=== PATIENT | male | born 1975 | race Caucasian/White ===

== ENCOUNTER → 2022-10-02 | Outpatient (CLI) | payer BC ==
[~2022-10-02] MED LIST: ASP325T PO; CIPR500T78 PO; DILT300C PO; DOXA2TAB2 PO; HYDR-3720 PO; LINA5TAB PO; LSNP20T PO; METF-380 PO; METO100T2 PO; ONDA8TAB9 PO; PRD20T PO; SIMV10TA3 PO; SULF1TAB38 PO; TELM80TA3 PO
== END ==
LOC: CARD 07:44
PROVIDERS: ATTEND Nurse Practitioner Family
DX: R00.2 Palpitations (principal)
CPT/HCPCS: 93225; 93226

== ENCOUNTER 2022-10-14 08:05 | Day surgery (SDC) | payer BC ==
[2022-10-14] VITALS (9 sets, daily range): BP systolic 159–215; BP diastolic 85–111
[~2022-10-14] VITALS: Ht 180.3 cm; Wt 116.9 kg
[2022-10-14] MEDS ORDERED: LIDOCAINE 1% INJ 20 ML VIAL ONE (08:15)
[2022-10-14] MEDS ORDERED: NS IV 1000 ML 1,000 ML IV SCH ×2 (08:15→12:15)
[2022-10-14] MEDS ORDERED: HEParin (CATH LAB) 2,000 ML IV ONE (08:16)
[2022-10-14] MEDS ORDERED: NS IV 1000 ML 1,000 ML ONE (08:16)
[2022-10-14 08:37] LABS: HEMATOCRIT 52 % (40-54); HEMOGLOBIN 17.9 g/dL (13.3-17.7); MEAN CORPUSCULAR HEMOGLOBIN 30 pg (25-34); MEAN CORPUSCULAR HGB CONC 35 g/dL (32-36); MEAN CORPUSCULAR VOLUME 86 fL (80-99); MEAN PLATELET VOLUME 9.8 fL (9.0-12.2); PLATELET COUNT 225 10^3/uL (130-400); WHITE BLOOD COUNT 8.7 10^3/uL (4.3-11.0)
[2022-10-14] MEDS ORDERED: METO200T48 PO (08:44)
[2022-10-14] MEDS ORDERED: LISI20TA26 PO (08:44)
[2022-10-14] MEDS ORDERED: SITA1TBM4 PO (08:44)
[2022-10-14] MEDS ORDERED: DAPA10TA PO (08:44)
[2022-10-14] MEDS ORDERED: APIX5TAB PO (08:44)
[2022-10-14] MEDS ORDERED: LISI1TAB46 PO (08:44)
[2022-10-14 08:49] LABS: PROTHROMBIN TIME PATIENT 13.2 SEC (12.2-14.7)
[2022-10-14 08:59] LABS: ALBUMIN 4.2 GM/DL (3.2-4.5); BILIRUBIN,TOTAL 1.3 MG/DL (0.1-1.0); CALCIUM 8.9 MG/DL (8.5-10.1); CREATININE SERUM 0.88 MG/DL (0.60-1.30); POTASSIUM 3.2 MMOL/L (3.6-5.0); TOTAL PROTEIN 7.6 GM/DL (6.4-8.2)
[2022-10-14] MEDS ORDERED: MIDAZOLAM 5 MG/5 ML (VERSED) VIAL ONE (10:58)
[2022-10-14] MEDS ORDERED: fentaNYL INJ 100 MCG/2 ML AMP ONE (10:58)
[2022-10-14] MEDS ORDERED: HEParin 1000 UNIT/ML (10ML VIAL) FOR BOLUS ONE (10:58)
[2022-10-14] MEDS ORDERED: VERAPAMIL 5 MG/2 ML (CALAN) VIAL IV ONE (10:58)
[2022-10-14] MEDS ORDERED: NITRO DRIP 25000 MCG/D5W 250 ML IV ONE (10:59)
--- NOTE | 2022-10-14 12:11 | Cardiac Procedure Note-CS/ASA ---
Pre-Procedure Note Pre-Op Procedure Note Date of Available H&P: Sep 19, 2022 Date H&P Reviewed: October 14, 2022 Time H&P Reviewed: 10:00 History & Physical: H&P Reviewed Changes from last HP Wide-complex tachy seen on Holter of 10-02-22 Moderate Sedation PreProcedure ASA Score 3 Airway Lungs Heart ASA score ASA 1: a normal healthy patient ASA 2: a patient with a mild systemic disease (mid diabetes, controlled hyp ertension, obesity ASA 3: a patient with a severe systemic disease that limits activity (angina, COPD, prior Myocardial infarction) ASA 4: a patient with an incapacitating disease that is a constant threat to life (CHF, renal failure) ASA 5: a moribund patient not expected to survive 24 hrs. (ruptured aneurysm) ASA 6: a declared brain- patient whose organs are being harvested. For emergent operations, add the letter E after the classification Mallampati Classification Grade 2 Sedation Plan Analgesia, Amnesia, Plan communicated to team members The patient is an appropriate candidate to undergo the planned procedure, sedation, and anesthesia. The patient immediately re-assessed prior to indication. FRANK GONZALES MD FACP [facility] October 14, 2022 12:11
[2022-10-14] MEDS ORDERED: PATIENT MAY USE OWN MEDS, ALL PO SCH (12:15)
[2022-10-14] MEDS ORDERED: KCL 20 MEQ TAB (K-DUR) PO ONE (12:15)
[2022-10-14] MEDS ORDERED: POTA-177 PO (12:16)
--- NOTE | 2022-10-14 12:17 | Discharge Inst-Cardiology ---
Discharge Inst-Cardiac Discharge Medications New Medications: Potassium Chloride (Potassium Chloride) 10 Meq Tab.er.prt 10 MEQ PO DAILY, #30 TAB 5 Refills Continued Medications: Apixaban (Eliquis) 5 Mg Tablet 5 MG PO BID, TAB Dapagliflozin Propanediol (Farxiga) 10 Mg Tablet 10 MG PO DAILY, TAB Lisinopril (Lisinopril) 20 Mg Tablet 20 MG PO DAILY, TAB Lisinopril/Hydrochlorothiazide (Lisinopril-Hctz 20-12.5 mg Tab) 20 Mg-12.5 Mg Tablet 1 EACH PO DAILY, TAB Metoprolol Succinate (Metoprolol Succinate) 200 Mg Tab.er.24h 200 MG PO DAILY, TAB Discontinued Medications: Sitagliptin Phos/Metformin HCl (Janumet Xr 50-1,000 mg Tablet) 50 Mg-1,000 Mg Tbmp.24hr 1 EACH PO BID, EA Patient Instructions Patient Instructions: Hold METFORMIN until the morning of 10/17/22. Then resume previous home dose FRANK GONZALES MD FACP [facility] October 14, 2022 12:17
--- NOTE | 2022-10-14 12:18 | Discharge Inst-Post CATH ---
Discharge Inst-CATH/EP Post Cardiac Cath/EP D/C Inst Follow Up/Plan F/u with Dr Ngo in 1-2 weeks ACTIVITY * Go Home directly and rest. * Limit activity of the leg (or wrist if it was used) for 7 days including aerobics, swimming, jogging, bicycling, etc. * Restrict stair-climbing for 7 days if possible, if not, climb up with your non-cath leg, then bring together on the same step. * Avoid lifting, pushing, pulling or excessive movement of the affected e xtremity for 7 days. * Customary sexual activity may be resumed after 2 days-use caution not to use a position that strains or causes pain to the affected extremity. * No driving for 24 hours. * NO SMOKING. * Avoid straining for bowel movements for 7 days. * Gentle walking on level ground is allowed. * Returning to work will depend on the type of procedure and the results. Your doctor will discuss this with you. CALL YOUR DOCTOR FOR ANY OF THE FOLLOWING: *If bleeding from the puncture site occurs- Apply gentle pressure to site with clean cloth and call your doctor or EMS. * If a knot or lump forms under the skin, increases in size, or causes pain. * If bruising appears to be worsening or moving further down your leg instead of disappearing. * Temperature above 101 F. CARE OF YOUR GROIN INCISION; * Bruising or purple discoloration of the skin near the puncture site is common. * You may shower only, no bathtub bathing for 5 days. Be careful to avoid slipping as your leg may feel stiff. * If a closure device was used on your femoral artery, please see the attached guide regarding care of the device and your leg. * Leave dressing on FOR 24 hours. CARE OF YOUR WRIST INCISION; * Bruising or purple discoloration of the skin near the puncture site is common. * You may shower. * DO NOT submerge wrist. * Leave dressing on FOR 24 hours. FRANK NGO MD FACP [facility] October 14, 2022 12:18
--- NOTE | 2022-10-14 12:22 | Cardiac Cath Report ---
CARDIAC CATHETERIZATION DATE OF PROCEDURE: 10/14/22 INDICATION: Wide-complex tachy seen on Holter of 10-02-22 HISTORY: The patient is a 47 year old male with palpitations and non-sustained wide-complex tachy seen on Holter of 10-02-22 PROCEDURES PERFORMED: 1. Cor angio; 2. LHC PROCEDURE DESCRIPTION: After informed consent and in the fasting state, left heart catheterization was performed through the R radial artery utilizing a [] Romanian system by percutaneous approach. 6F TIG for L and R cors, 5F pigtail for LHC. All catheters were exchanged over a guidewire. HEMODYNAMICS: LVEDP 19 mmHg; no significant pressure gradient on pullback across the aortic valve CORONARY ANGIOGRAPHY: Left main coronary artery: Ok Left anterior descending coronary artery: [Ok Left circumflex coronary artery: Ok Right coronary artery: Dominant, Ok LV Angiogram: KOEHLER projection did not show wall motion abnormality and LVEF was approx 60%. IMPRESSION: 1. No angiographically significant CAD 2. LVEDP 19 mmHg 3. LVEF 55-60% FRANK GONZALES MD FACP [facility] October 14, 2022 12:22
[2022-10-14] MEDS ORDERED: amLODIPine 5 MG (NORVASC) TAB PO STA (13:51)
== END 2022-10-14 15:00 | disposition home or self-care (01) ==
LOC: CATH 08:05 → SDC 12:11 → CATH 15:00
PROVIDERS: ATTEND Internal Medicine Cardiovascular Disease
DX: R00.0 Tachycardia, unspecified (principal); R00.2 Palpitations; I48.0 Paroxysmal atrial fibrillation; I10 Essential (primary) hypertension; E11.9 Type 2 diabetes mellitus without complications; G47.33 Obstructive sleep apnea (adult) (pediatric); E66.9 Obesity, unspecified; E78.2 Mixed hyperlipidemia; F17.220 Nicotine dependence, chewing tobacco, uncomplicated; Z91.199 Patient's noncompliance with other medical treatment and regimen due to unspecified reason; Z87.442 Personal history of urinary calculi; Z79.01 Long term (current) use of anticoagulants; Z68.36 Body mass index [BMI] 36.0-36.9, adult; Z28.310 Unvaccinated for COVID-19; Z79.84 Long term (current) use of oral hypoglycemic drugs
CPT/HCPCS: 80053; 80061; 85027; 85610; 85730; 87081; 93005; 93458; C1769; C1894; 36415

== ENCOUNTER 2023-04-29 05:58 | Outpatient (CLI) | payer BC ==
[~2023-04-29] VITALS: Ht 180 cm; Wt 115.9 kg
[~2023-04-29 05:58] MED LIST changes: +APIX5TAB PO; +DAPA10TA PO; +LISI1TAB46 PO; +LISI20TA26 PO; +METO200T48 PO; +POTA-177 PO; +SITA1TBM4 PO
[2023-04-29] MEDS ORDERED: SITA1TBM4 PO (14:57)
== END 2023-04-29 15:09 | disposition home or self-care (01) ==
LOC: PREOP 05:58
PROVIDERS: ATTEND Internal Medicine
DX: Z01.818 Encounter for other preprocedural examination (principal)